=== PATIENT | female | born 1965 | race Caucasian/White ===

== ENCOUNTER 2020-06-14 09:22 | Outpatient (CLI) | payer BC, SELFPAY ==
--- NOTE | 2020-06-14 09:27 | MM_ITS ---
WS: [id number] BILATERAL DIGITAL SCREENING MAMMOGRAPHY WITH CAD CLINICAL INFORMATION: SCREENING HISTORY: Screening mammogram. No current complaints. COMPARISON: None. TECHNIQUE: Bilateral CC and MLO views. FINDINGS: Scattered fibroglandular densities bilaterally. No suspicious focal mass, asymmetry, calcifications, or architectural distortion. No evidence of malignancy. MM/[id number] IMPRESSION: BI-RADS: 1-Negative FOLLOW UP: 1 Year Follow-up Recommend return to annual screening mammography.
== END 2020-06-14 09:23 | disposition home or self-care (01) ==
PROVIDERS: PCP Nurse Practitioner Family; Visit Provider Nurse Practitioner Family
DX: Z12.31 Encounter for screening mammogram for malignant neoplasm of breast (principal)
CPT/HCPCS: 77067

== ENCOUNTER → 2020-07-25 08:32 | Outpatient (BNVA) | payer BC, SELFPAY | PROVIDERS: PCP Nurse Practitioner Family; Referring Provider Nurse Practitioner Family; Visit Provider Podiatrist Foot & Ankle Surgery | DX: M79.672 Pain in left foot (principal) | CPT/HCPCS: 73630 ==

== ENCOUNTER → 2022-04-08 10:14 | Outpatient (BNVA) | payer OTHER, SELFPAY | PROVIDERS: PCP Nurse Practitioner Family; Visit Provider Registered Nurse Neonatal Intensive Care | DX: N39.0 Urinary tract infection, site not specified (principal); N20.0 Calculus of kidney | CPT/HCPCS: 81000 ==

== ENCOUNTER 2023-03-15 15:09 | Emergency (ER) | payer OTHER, SELFPAY ==
[2023-03-15 15:18] VITALS: BP 138/80; PULSE 72; RESP 16; TEMP 36.6; O2SAT 95; BMI 27.4
[2023-03-15 15:46] VITALS: BP 130/79; PULSE 67; RESP 16; O2SAT 96
--- NOTE | 2023-03-15 15:56 | CTR_ITS ---
PROCEDURE INFORMATION: Exam: CT Abdomen And Pelvis Without Contrast Exam date and time: 03/15/2023 4:13 PM Age: 57 years old Clinical indication: Other: Hematuria; Abdominal pain; Flank; Other: Bilateral l>r; Patient HX: HX of renal calculus; Additional info: Bilateral l>r flank pain, hematuria TECHNIQUE: Imaging protocol: Computed tomography of the abdomen and pelvis without contrast. Radiation optimization: All CT scans at this facility use at least one of these dose optimization techniques: automated exposure control; mA and/or kV adjustment per patient size (includes targeted exams where dose is matched to clinical indication); or iterative reconstruction. REPORTING DATA: Count of CT and Cardiac NM exams in prior 12 months: This patient has received 0 known CTs and 0 known cardiac nuclear medicine studies in the 12 months prior to the current study. COMPARISON: CR XR [id number] 06/22/2022 4:09 PM RADIATION DOSE METRICS: Total DLP (mGy-cm): 504.04 FINDINGS: Liver: Normal. No mass. Gallbladder and bile ducts: Normal. No calcified stones. No ductal dilation. Pancreas: Normal. No ductal dilation. Spleen: Normal. No splenomegaly. Adrenal glands: Normal. No mass. Kidneys and ureters: Left renal pelvic 18.4 x 9.6 x 11.2 mm calculus, with mild left renal pelvic wall thickening and mild left intrarenal pelvicaliectasis. No ureteral calculi identified. Bilateral renal calyceal lithiasis. Bilateral renal benign cysts, largest on the right measuring 1.6 cm. Stomach and bowel: Unremarkable. No obstruction. No mucosal thickening. Appendix: The vermiform appendix is normal. Intraperitoneal space: No free air. No significant fluid collection. Vasculature: Moderate aortic atherosclerotic calcification without aneurysm. The iliac arteries show moderate bilateral atherosclerotic calcifications without evidence of aneurysm. Calcified phleboliths are present in the lower pelvis bilaterally. Lymph nodes: No enlarged lymph nodes. Urinary bladder: The urinary bladder is decompressed and difficult to assess. Reproductive: Unremarkable as visualized. Bones/joints: L5-S1 spondylosis with bilateral neural foraminal stenosis. Bilateral lower lumbar facet primary osteoarthritis. Soft tissues: Unremarkable. CT/CT kidney stone [id number] IMPRESSION: 1. Left renal pelvic calculus, with renal pelvic wall thickening and mild pelvicaliectasis. Obstructive uropathy likely. Clinical correlation is recommended. 2. Bilateral renal calyceal lithiasis. 3. Bilateral renal benign cysts. No follow-up imaging is recommended. COMMENTS: Consistent with the [employer]'s Incidental Findings Committee white paper (J Am Chris Radiol 2018): Any incidental renal lesion less than 1 cm or classified as too small to characterize, or any incidental cystic renal lesion characterized as simple-appearing, is likely benign. No follow-up imaging is recommended for these lesions per consensus recommendations based on imaging criteria.
--- NOTE | 2023-03-15 15:58 | ED_ITS ---
Documented by User: [email or web address] Cain 03/16/23 07:13 HPI - Back Pain/Injury General: Chief Complaint: Back Pain/Injury Stated Complaint: Abd pain Time Seen by Provider: 03/15/23 15:21 Source: patient Mode of arrival: ambulatory Limitations: no limitations History of Present Illness: Patient is a 57-year-old female here for complaint of bilateral left greater than right flank pain. Patient states she has a known history of bilateral kidney stones. She states in the past she has had multiple interventions including ureter stents, lithotripsy, basket retrieval, etc. She states over the past several months she has been having intermittent flank pains along with intermittent hematuria. She states while at work earlier today she began having fairly significant left flank pain prompting her ED evaluation. Upon arrival she states pain has improved and is minimal. She states she has been seen by her primary care provider and has been referred to a urologist in [place] as well as [place] but neither of which have called her for an appointment. Patient is not running fevers. She denies dysuria. She does intermittently have some urinary urgency. She has no abdominal pain. MD elicited complaint: back pain Pertinent past history: kidney stones Onset (ago): week(s) Timing: intermittent Severity: mild Quality: sharp Location: left flank and right flank Radiation: none Exacerbating factors: none Relieving factors: none Associated symptoms: Reports hematuria, nausea and urinary urgency; Deny abdominal pain, chills, change in bowel habits, dysuria, fatigue, fever(s) or vomiting Work related injury: No Review of Systems Const: Denies: fever(s), chills, body aches, fatigue or malaise Card: Denies: chest pain Resp: Denies: dyspnea GI: Reports: nausea; Denies: abdominal pain, vomiting, diarrhea or change in bowel habits : Reports: flank pain, urinary urgency and hematuria; Denies: difficulty voiding, dysuria, urinary frequency, urinary hesitancy, dribbling, vaginal bleeding or pelvic pain Musc: Reports: back pain (flank pain); Denies: neck pain, extremity pain or joint pain Skin/Breast: Denies: rash Neuro: Denies: headache(s) or dizziness PFS ED PFSH: Social History Smoking and tobacco status: current every day smoker Household members: spouse Marital status: Current occupational status: unemployed Physical Exam Const: COMMON NORMALS: no acute distress, average body habitus, patient oriented x3, no limitations, healthy appearing, alert and well nourished GENERAL APPEARANCE: cooperative ORIENTATION/CONSCIOUSNESS: Yes awake, Yes oriented to person, Yes oriented to place and Yes oriented to time Resp: COMMON NORMALS: normal respiratory effort and clear to auscultation bilaterally AUSCULTATION: clear to auscultation bilaterally Cardio: COMMON NORMALS: regular rate and regular rhythm RATE: regular rate RHYTHM: regular rhythm GI: COMMON NORMALS: Normal to inspection, nondistended, normoactive bowel sounds present, Soft to palpation, non-tender, No hepatosplenomegaly present and no masses PALPATION: Yes Soft to palpation and Yes No hepatosplenomegaly present : BLADDER/KIDNEY EXAM: Yes CVA tenderness on the left Back/Pelvis: COMMON NORMALS: thoracic and lumbar spine normal to inspection, no thoracic nor lumbar tenderness and thoraco-lumbar ROM normal GENERAL BACK: Yes CVA tenderness Extremity: COMMON NORMALS: normal to inspection GENERAL: Yes normal exam except as noted Neuro: DELMAR COMA SCALE: document GCS findings Delmar coma scale eye opening: Spontaneous [place]mar coma scale verbal response: Orientated [facility] coma scale motor response: Obey commands [facility] coma scale total score: 15 COMMON NORMALS: patient oriented x3, moves all extremities, no focal motor deficits and no sensory deficits noted SENSORIUM/ORIENTATION: Yes alert, Yes oriented to person, Yes oriented to place and Yes oriented to time Skin: COMMON NORMALS: no rashes or lesions noted GENERAL SKIN EXAM: no rashes or lesions noted Course Vital Signs: Vital signs: Vital Signs Temperature 97.9 F 03/15/23 15:18 Pulse Rate 67 03/15/23 15:46 Respiratory Rate 16 03/15/23 15:46 Blood Pressure 112/63 03/15/23 17:25 Pulse Oximetry 96 03/15/23 15:46 Oxygen Delivery Me thod Room Air 03/15/23 15:18 MDM - Back Pain/Injury Medical Decision Making Was discussed in detail with nurse practitioner. Patient appears to have la teral kidney stones and possible obstructive uropathy. She already has an appointment for 2 different urologist. Patient be placed on antibiotics and pain medicine to get her through the weekend until she can call the urologist office to try to get their appointment made even quicker. Patient is a 57-year-old female with known bilateral kidney stones here for complaints of some intermittent flank pains. She had an episode at work today with worse in severity left flank pain and thus prompting her ED visit. Upon arrival to the ED she states pain has subsided and is minimal. Her vital signs are stable. Blood work overall is unremarkable. Her BUN/Cr is normal. UA showing 3+ blood. She does have 10-15 WBCs but leuks and nitrite are negative. She does not have any signs or symptoms to suggest UTI or pyelonephritis. CT scan showing a very large left renal pelvic calculus measuring over 18 mm longitudinally. Obstructive uropathy likely. This time patient's labs are reassuring. She is not having much discomfort. She has already been referred to urologist. I will place referral with case management to try to expedite an appointment. She will be placed on prophylactic antibiotics given the fact that we have not secured urology follow-up and we are going into the weekend. She will also be given pain/nausea medications to use as needed. Very strict return to ED precautions were discussed with patient. Discussed case with Dr. Faria who agrees with evaluation and care plan. ES Labs 03/15/23 15:52 03/15/23 15:52 Radiology Impressions Abdomen/Pelvis CT 03/15/23 15:56 IMPRESSION: 1. Left renal pelvic calculus, with renal pelvic wall thickening and mild pelvicaliectasis. Obstructive uropathy likely. Clinical correlation is recommended. 2. Bilateral renal calyceal lithiasis. 3. Bilateral renal benign cysts. No follow-up imaging is recommended. COMMENTS: Consistent with the [employer]'s Incidental Findings Committee white paper (J Am Chris Radiol 2018): Any incidental renal lesion less than 1 cm or classified as too small to characterize, or any incidental cystic renal lesion characterized as simple-appearing, is likely benign. No follow-up imaging is recommended for these lesions per consensus recommendations based on imaging criteria. Laboratory Results WBC 7.0 10^3/uL (4.0-10.0) 03/15/23 15:52 RBC 4.48 10^6/uL (4.1-5.3) 03/15/23 15:52 Hgb 14.6 g/dL (11.5-15.3) 03/15/23 15:52 Hct 43.3 % (37.0-47.0) 03/15/23 15:52 MCV 96.7 fl (81-99) 03/15/23 15:52 MCH 32.6 pg (28.0-34.0) 03/15/23 15:52 MCHC 33.7 g/dL (30.0-36.0) 03/15/23 15:52 RDW 13.8 % (12.1-15.1) 03/15/23 15:52 Plt Count 293 10^3/cmm (130-400) 03/15/23 15:52 MPV 10.4 fL (7.4-10.4) 03/15/23 15:52 Neut % (Auto) 67.1 % 03/15/23 15:52 Lymph % (Auto) 22.3 % 03/15/23 15:52 [place] % (Auto) 6.9 % 03/15/23 15:52 Eos % (Auto) 3.0 % 03/15/23 15:52 Baso % (Auto) 0.4 % 03/15/23 15:52 Neut # (Auto) 4.70 10^3/uL (1.8-7.7) 03/15/23 15:52 Lymph # (Auto) 1.6 10^3/uL (0.8-4.8) 03/15/23 15:52 [place] # (Auto) 0.5 10^3/uL (0.2-0.9) 03/15/23 15:52 Eos # (Auto) 0.2 10^3/uL (0.0-0.8) 03/15/23 15:52 Baso # (Auto) 0.0 10^3/uL (0.0-0.1) 03/15/23 15:52 Nucleated RBC % (auto) 0 % 03/15/23 15:52 Nucleated RBCs # 0.0 /100WBC 03/15/23 15:52 Sodium 139 mmol/L (136-145) 03/15/23 15:52 Potassium 4.2 mmol/L (3.5-5.1) 03/15/23 15:52 Chloride 101 mmol/L (98-107) 03/15/23 15:52 Carbon Dioxide 25 mmol/L (22-29) 03/15/23 15:52 Anion Gap 17.2 (5-19) 03/15/23 15:52 BUN 12 mg/dL (6-20) 03/15/23 15:52 Creatinine 0.7 mg/dL (0.5-0.9) 03/15/23 15:52 GFR Calculation 85.6 mL/min (90-130) L 03/15/23 15:52 Glucose 90 mg/dL (65-115) 03/15/23 15:52 Calculated Osmolality 287 mOsm/kg (285-295) 03/15/23 15:52 Calcium 9.1 mg/dL (8.5-10.5) 03/15/23 15:52 Total Bilirubin 0.8 mg/dL (0.15-1.2) 03/15/23 15:52 AST 15 U/L (0-32) 03/15/23 15:52 ALT 13 U/L (0-33) 03/15/23 15:52 Alkaline Phosphatase 66 U/L (35-105) 03/15/23 15:52 Total Protein 7.1 g/dL (6.6-8.7) 03/15/23 15:52 Albumin 4.5 g/dL (3.5-5.2) 03/15/23 15:52 Globulin 2.6 g/dL (1.3-4.6) 03/15/23 15:52 Lipase 18 U/L (13-60) 03/15/23 15:52 Urine Color Yellow (Yellow) 03/15/23 16:08 Urine Appearance Hazy (CLEAR) A 03/15/23 16:08 Urine pH 5 (5-7) 03/15/23 16:08 Ur Specific Lyle 1.020 (1.005-1.030) 03/15/23 16:08 Urine Protein Trace (Negative) 03/15/23 16:08 Urine Glucose (UA) Norm (Normal) 03/15/23 16:08 Urine Ketones 1+ (Negative) H 03/15/23 16:08 Urine Blood 3+ (Negative) H 03/15/23 16:08 Urine Nitrate Negative (Negative) 03/15/23 16:08 Urine Bilirubin Neg (Negative) 03/15/23 16:08 Urine Urobilinogen Norm mg/dL (Negative) 03/15/23 16:08 Ur Leukocyte Esterase Negative (Negative) 03/15/23 16:08 Urine RBC 25-40 /hpf (0-2) H 03/15/23 16:08 Urine WBC 10-15 /hpf (0-5) H 03/15/23 16:08 Ur Squamous Epith Cells 0-4 /hpf (0-5) H 03/15/23 16:08 Amorphous Sediment Not Reportable 03/15/23 16:08 Urine Bacteria 1+ /hpf (NONE) H 03/15/23 16:08 Discharge Plan Discharge Patient Disposition: Home Clinical Impression: Multiple kidney stones, Acute unilateral obstructive uropathy Condition: Stable Prescriptions: New hydrocodone-acetaminophen 5-325 mg tablet 1 tab PO Q6H PRN (Reason: pain) Qty: 14 0RF Cipro 500 mg tablet 500 mg PO Q12H Qty: 14 0RF ondansetron 4 mg tablet,disintegrating 4 mg PO Q8H PRN (Reason: nausea and vomiting) Qty: 14 0RF No Action levothyroxine 125 mcg tablet PO fluoxetine 40 mg capsule PO ondansetron 4 mg tablet,disintegrating 4 mg PO Q6H PRN (Reason: nausea and vomiting) Qty: 20 0RF Discharge Orders: Discharge ED (Routine); Ordered 03/15/23 Ordered By: Amber Dawson Referrals: Beckie Kerr FNP [Primary Care Provider] - Patient Instructions: Kidney Stones, Flank Pain (ED), Opioid Safety, Pain Management Activity Restrictions/Additional Instructions: As we discussed I will place another referral to urology through case management. You also need to contact the urologist that you have been referred to on Saturday to help expedite an urgent appointment. As we discussed you need to return to the emergency department for the onset of severe and constant flank pain, nausea, vomiting, fevers, decreased urine output, generally feeling unwell, or any other concerns you may have. I hope you begin to feel better soon. Coding Level of Care Code ED Boring Machine Set Up Operator Jig for Alie Linder Documented by User: [email or web address] 03/15/23 20:09 HPI - Back Pain/Injury General: Chief Complaint: Back Pain/Injury Stated Complaint: Abd pain Time Seen by Provider: 03/15/23 15:21 PFSH ED PFSH: Social History Smoking and tobacco status: current every day smoker Household members: spouse Marital status: Current occupational status: unemployed Physical Exam Neuro: DELMAR COMA SCALE: document GCS findings [place]mar coma scale total score: 15 Course Vital Signs: Vital signs: Vital Signs Temperature 97.9 F 03/15/23 15:18 Pulse Rate 67 03/15/23 15:46 Respiratory Rate 16 03/15/23 15:46 Blood Pressure 112/63 03/15/23 17:25 Pulse Oximetry 96 03/15/23 15:46 Oxygen Delivery Me thod Room Air 03/15/23 15:18 MDM - Back Pain/Injury Medical Decision Making Was discussed in detail with nurse practitioner. Patient appears to have lateral kidney stones and possible obstructive uropathy. She already has an appointment for 2 different urologist. Patient be placed on antibiotics and pain medicine to get her through the weekend until she can call the urologist office to try to get their appointment made even quicker. Labs 03/15/23 15:52 03/15/23 15:52 Radiology Impressions Abdomen/Pelvis CT 03/15/23 15:56 IMPRESSION: 1. Left renal pelvic calculus, with renal pelvic wall thickening and mild pelvicaliectasis. Obstructive uropathy likely. Clinical correlation is recommended. 2. Bilateral renal calyceal lithiasis. 3. Bilateral renal benign cysts. No follow-up imaging is recommended. COMMENTS: Consistent with the [employer]'s Incidental Findings Committee white paper (J Am Chris Radiol 2018): Any incidental renal lesion less than 1 cm or classified as too small to characterize, or any incidental cystic renal lesion characterized as simple-appearing, is likely benign. No follow-up imaging is recommended for these lesions per consensus recommendations based on imaging criteria. Laboratory Results WBC 7.0 10^3/uL (4.0-10.0) 03/15/23 15:52 RBC 4.48 10^6/uL (4.1-5.3) 03/15/23 15:52 Hgb 14.6 g/dL (11.5-15.3) 03/15/23 15:52 Hct 43.3 % (37.0-47.0) 03/15/23 15:52 MCV 96.7 fl (81-99) 03/15/23 15:52 MCH 32.6 pg (28.0-34.0) 03/15/23 15:52 MCHC 33.7 g/dL (30.0-36.0) 03/15/23 15:52 RDW 13.8 % (12.1-15.1) 03/15/23 15:52 Plt Count 293 10^3/cmm (130-400) 03/15/23 15:52 MPV 10.4 fL (7.4-10.4) 03/15/23 15:52 Neut % (Auto) 67.1 % 03/15/23 15:52 Lymph % (Auto) 22.3 % 03/15/23 15:52 [place] % (Auto) 6.9 % 03/15/23 15:52 Eos % (Auto) 3.0 % 03/15/23 15:52 Baso % (Auto) 0.4 % 03/15/23 15:52 Neut # (Auto) 4.70 10^3/uL (1.8-7.7) 03/15/23 15:52 Lymph # (Auto) 1.6 10^3/uL (0.8-4.8) 03/15/23 15:52 [place] # (Auto) 0.5 10^3/uL (0.2-0.9) 03/15/23 15:52 Eos # (Auto) 0.2 10^3/uL (0.0-0.8) 03/15/23 15:52 Baso # (Auto) 0.0 10^3/uL (0.0-0.1) 03/15/23 15:52 Nucleated RBC % (auto) 0 % 03/15/23 15:52 Nucleated RBCs # 0.0 /100WBC 03/15/23 15:52 Sodium 139 mmol/L (136-145) 03/15/23 15:52 Potassium 4.2 mmol/L (3.5-5.1) 03/15/23 15:52 Chloride 101 mmol/L (98-107) 03/15/23 15:52 Carbon Dioxide 25 mmol/L (22-29) 03/15/23 15:52 Anion Gap 17.2 (5-19) 03/15/23 15:52 BUN 12 mg/dL (6-20) 03/15/23 15:52 Creatinine 0.7 mg/dL (0.5-0.9) 03/15/23 15:52 GFR Calculation 85.6 mL/min (90-130) L 03/15/23 15:52 Glucose 90 mg/dL (65-115) 03/15/23 15:52 Calculated Osmolality 287 mOsm/kg (285-295) 03/15/23 15:52 Calcium 9.1 mg/dL (8.5-10.5) 03/15/23 15:52 Total Bilirubin 0.8 mg/dL (0.15-1.2) 03/15/23 15:52 AST 15 U/L (0-32) 03/15/23 15:52 ALT 13 U/L (0-33) 03/15/23 15:52 Alkaline Phosphatase 66 U/L (35-105) 03/15/23 15:52 Total Protein 7.1 g/dL (6.6-8.7) 03/15/23 15:52 Albumin 4.5 g/dL (3.5-5.2) 03/15/23 15:52 Globulin 2.6 g/dL (1.3-4.6) 03/15/23 15:52 Lipase 18 U/L (13-60) 03/15/23 15:52 Urine Color Yellow (Yellow) 03/15/23 16:08 Urine Appearance Hazy (CLEAR) A 03/15/23 16:08 Urine pH 5 (5-7) 03/15/23 16:08 Ur Specific [place]yle 1.020 (1.005-1.030) 03/15/23 16:08 Urine Protein Trace (Negative) 03/15/23 16:08 Urine Glucose (UA) Norm (Normal) 03/15/23 16:08 Urine Ketones 1+ (Negative) H 03/15/23 16:08 Urine Blood 3+ (Negative) H 03/15/23 16:08 Urine Nitrate Negative (Negative) 03/15/23 16:08 Urine Bilirubin Neg (Negative) 03/15/23 16:08 Urine Urobilinogen Norm mg/dL (Negative) 03/15/23 16:08 Ur Leukocyte Esterase Negative (Negative) 03/15/23 16:08 Urine RBC 25-40 /hpf (0-2) H 03/15/23 16:08 Urine WBC 10-15 /hpf (0-5) H 03/15/23 16:08 Ur Squamous Epith Cells 0-4 /hpf (0-5) H 03/15/23 16:08 Amorphous Sediment Not Reportable 03/15/23 16:08 Urine Bacteria 1+ /hpf (NONE) H 03/15/23 16:08 Discharge Plan Discharge Patient Disposition: Home Clinical Impression: Multiple kidney stones, Acute unilateral obstructive uropathy Condition: Stable Prescriptions: New hydrocodone-acetaminophen 5-325 mg tablet 1 tab PO Q6H PRN (Reason: pain) Qty: 14 0RF Cipro 500 mg tablet 500 mg PO Q12H Qty: 14 0RF ondansetron 4 mg tablet,disintegrating 4 mg PO Q8H PRN (Reason: nausea and vomiting) Qty: 14 0RF No Action levothyroxine 125 mcg tablet PO fluoxetine 40 mg capsule PO ondansetron 4 mg tablet,disintegrating 4 mg PO Q6H PRN (Reason: nausea and vomiting) Qty: 20 0RF Discharge Orders: Discharge ED (Routine); Ordered 03/15/23 Ordered By: Amber Dawson Referrals: Beckie Kerr FNP [Primary Care Provider] - Patient Instructions: Kidney Stones, Flank Pain (ED), Opioid Safety, Pain Management Activity Restrictions/Additional Instructions: As we discussed I will place another referral to urology through case management. You also need to contact the urologist that you have been referred to on Saturday morning to help expedite an urgent appointment. As we discussed you need to return to the emergency department for the onset of severe and constant flank pain, nausea, vomiting, fevers, decreased urine output, generally feeling unwell, or any other concerns you may have. I hope you begin to feel better soon. Coding Level of Care Code ED Boring Machine Set Up Operator Jig for Alie Linder
[2023-03-15] MEDS: ketorolac 60 mg/2 mL INJ 30 MG IVP (16:05)
[2023-03-15] MEDS: ondansetron 2 mg/ML SDV 2 mL 4 MG IVP (16:05)
[2023-03-15 16:08] LABS: Basophils % 0.4 %; Eosinophils # 0.2 10^3/uL (0.0-0.8); Hematocrit 43.3 % (37.0-47.0); Hemoglobin 14.6 g/dL (11.5-15.3); Lymphocytes # 1.6 10^3/uL (0.8-4.8); Lymphocytes % 22.3 %; Mean Corpuscular HGB Conc 33.7 g/dL (30.0-36.0); Mean Corpuscular Hemoglobin 32.6 pg (28.0-34.0); Mean Corpuscular Volume 96.7 fl (81-99); Mean Platelet Volume 10.4 fL (7.4-10.4); Monocytes # 0.5 10^3/uL (0.2-0.9); Monocytes % 6.9 %; Neutrophils % 67.1 %; Nucleated Red Blood Cells % 0 %; Platelet Count 293 10^3/cmm (130-400); Red Blood Count 4.48 10^6/uL (4.1-5.3); Red Cell Distribution Width 13.8 % (12.1-15.1)
[2023-03-15 16:28] LABS: Alanine Aminotransferase 13 U/L (0-33); Albumin Level 4.5 g/dL (3.5-5.2); Alkaline Phosphatase 66 U/L (35-105); Anion Gap 17.2 (5-19); Aspartate Amino Transferase 15 U/L (0-32); Blood Urea Nitrogen 12 mg/dL (6-20); Calcium 9.1 mg/dL (8.5-10.5); Carbon Dioxide 25 mmol/L (22-29); Chloride 101 mmol/L (98-107); Globulin 2.6 g/dL (1.3-4.6); Glomerular Filtration Rate 85.6 mL/min (90-130); Glucose 90 mg/dL (65-115); Lipase 18 U/L (13-60); Osmolality Calculated 287 mOsm/kg (285-295); Potassium 4.2 mmol/L (3.5-5.1); Sodium 139 mmol/L (136-145); Total Bilirubin 0.8 mg/dL (0.15-1.2); Total Protein 7.1 g/dL (6.6-8.7)
[2023-03-15 16:44] LABS: Add Urine Microscopic? YES; Bilirubin Urine Neg (Negative); Blood Urine 3+ (Negative); Glucose Urine UA Norm (Normal); Ketones Urine 1+ (Negative); Leukocyte Esterase Urine Negative (Negative); Nitrate Urine Negative (Negative); Protein Urine Trace (Negative); Urine Appearance Hazy (CLEAR); Urine Color Yellow (Yellow); Urobilinogen Urine Norm (Negative); pH Urine 5 (5-7)
[2023-03-15 16:49] LABS: Add Urine Culture? Yes; Bacteria Urine 1+ /hpf; RBC Urine 25-40 /hpf (0-2); Squamous Epithelial Cell Urine 0-4 /hpf (0-5)
[2023-03-15 17:25] VITALS: BP 112/63
--- NOTE | 2023-03-18 14:18 | DCPLANNER ---
clerk manager had message to schedule a follow up appointment for patient with urology. clerk manager spoke with patient to confirm where patient would like referral sent to. Patient stated that she would like referral sent to [facility]. clerk manager faxed patients information to [facility], patients information will be reviewed, clinic will call patient with appointment information.
== END 2023-03-15 17:26 | disposition home or self-care (01) ==
PROVIDERS: Emergency Provider Physician Assistant; PCP Nurse Practitioner Family
DX: N20.2 Calculus of kidney with calculus of ureter (principal); F17.200 Nicotine dependence, unspecified, uncomplicated
CPT/HCPCS: 74176; 80053; 81001; 83690; 85025; 87086; 96374; 96375; 99284; J1885; J2405

== ENCOUNTER 2023-05-27 13:44 | Emergency (ER) | payer OTHER, SELFPAY ==
[2023-05-27 13:47] VITALS: BP 167/95; PULSE 74; RESP 17; O2SAT 97; BMI 26.6
--- NOTE | 2023-05-27 13:56 | CT_ITS ---
WS: [id number] CT HEAD NONCONTRAST HISTORY: dizziness, HOLDEN TECHNIQUE: Contiguous axial imaging performed through the brain in 2.5 mm imaging. Bone and soft tiss ue windows. Sagittal and coronal reformats reviewed. All CT scans at [facility] use at least one of these dose optimization techniques: automated exposure control; mA and/or kV adjustment per pa tient size (includes targeted exams where dose is matched to clinical indication); or iterative recon struction. DLP: 1086.33 mGy.cm COMPARISON: None available. No acute intracranial hemorrhage, midline shift or mass effect. Mild atrophy and small vessel ischemic disease. Small lacunar infarct in the external capsule on the RIGHT. Ventricles: Normal size with no hydrocephalus. No inferior displacement of the cerebellar tonsils. Paranasal sinuses: As visualized are clear. Mastoid air cells: Well pneumatized. Calvarium and scalp: Skull is intact with no soft tissue edema or swelling. IMPRESSION: 1. No acute intracranial hemorrhage or edema. 2. Mild small vessel ischemic disease. Remote lacunar infarct RIGHT external capsule.
--- NOTE | 2023-05-27 13:56 | ECG_ITS ---
[facility] Test Date: 2023-05-27 Pat Name: Rosamaria Vincent Department: Room: Gender: Female Nuclear Medical Technologist: : 1965 Requested By: Amber Dawson Order Number: [id number] Loy MD: Shai Garcia M.D. Measurements Intervals [employer] Rate: 65 P: 66 MN: 157 QRS: 65 QRSD: 90 T: 51 QT: 414 QTc: 431 Interpretive Statements SINUS RHYTHM POSSIBLE LEFT ATRIAL ENLARGEMENT [-0.1mV P-WAVE IN V1/V2] LOW QRS VOLTAGE IN PRECORDIAL LEADS [QRS DEFLECTION < 1.0 mV IN CHEST LEADS] No previous ECG available for comparison Electronically Signed On 05-27-2023 14:27:48 CDT by Shai Garcia M.D. [id number]
--- NOTE | 2023-05-27 13:57 | ED_ITS ---
HPI - Dizziness General: Chief Complaint: Dizziness Stated Complaint: dizziness/high bp Time Seen by Provider: 05/27/23 13:47 Source: patient Mode of arrival: ambulatory Limitations: no limitations History of Present Illness: HPI Narrative: Patient is a nice 57-year-old female who presents to ED today with complaint of dizziness. Patient states she was at work when she began feeling dizzy. She states she was able to walk to the nurses station where she had her vitals take n. She was told that her blood pressure was elevated with a BP of 160s/100s. States her blood pressure is normally controlled at home. She states she did not notice any visual changes. She did not notice any numbness or tingling or weakness to her face or limbs. She denied slurred speech or trouble speaking. During my initial examination she tells me that she was starting to develop a headache. Shortly after during re-assessment she states her headache is gone. MD elicited complaint: dizziness Onset (ago): hour(s) Severity: moderate Description: room spinning History of similar symptoms: No Exacerbating factors: movement/ambulation and change in body position Relieving factors: remaining still Associated symptoms: Reports no associated symptoms and headache(s); Denies chest pain, chills, malaise, nausea, palpitations, syncope or vomiting Associated neuro symptoms: Reports no associated symptoms; Deny confusion or numbness in extremities Stroke scale total: 0 Review of Systems Const: Denies: fever(s), chills, body aches, fatigue or malaise Eyes: Denies: change in vision, blurry vision, photophobia, floaters or seeing flashes Card: Denies: chest pain, palpitations, irregular heart rhythm, lightheadedness, syncope or dyspnea on exertion Resp: Denies: dyspnea, productive cough or pain on inspiration GI: Denies: abdominal pain, nausea, vomiting, heartburn or diarrhea : Denies: flank pain, difficulty voiding, dysuria, urinary frequency, urinary urgency or urinary hesitancy Musc: Denies: neck pain, back pain or joint pain Skin/Breast: Denies: rash Neuro: Reports: headache(s) and dizziness; Denies: numbness in extremities, weakness in extremities, sensory changes, lack of coordination, difficulty walking, frequent falls, confusion, behavioral changes, Slurred speech present, difficulty communicating thoughts, seizure-like activity or involuntary movements Psych: Denies: anxiety PFSH ED PFSH: Social History Smoking and tobacco status: current every day smoker Household members: spouse Marital status: Current occupational status: unemployed Physical Exam Const: COMMON NORMALS: no acute distress, average body habitus, patient oriented x3, no limitations, healthy appearing, alert and well nourished ORIENTATION/CONSCIOUSNESS: Yes oriented to person, Yes oriented to place and Yes oriented to time HENMT: COMMON NORMALS: normocephalic, atraumatic, hearing grossly normal bilaterally, external ears normal, EAC's normal and TM's normal bilaterally HEAD & SCALP: normal to inspection, normocephalic and atraumatic FACE & SINUS: normal facial exam EXTERNAL EAR: Yes external ears normal EXTERNAL AUDITORY CANAL: EAC's normal TYMPANIC MEMBRANE: TM's normal bilaterally MOUTH: tongue normal; no audible dysphonia THROAT: posterior oropharynx normal, tonsils normal and uvula midline Eye: COMMON NORMALS: Equal, round and reactive pupils present, EOMs intact bilaterally and no scleral icterus GENERAL EYE: appearance normal, both eyes and all related structures and normal light reflex VISUAL ACUITY: Yes acuity normal ALIGNMENT: Yes alignment normal PUPIL: Yes Equal, round and reactive pupils present DIRECT OPHTHALMOSCOPY: Yes normal light reflex OTHER: no nystagmus Neck/C-Spine: COMMON NORMALS: full ROM, no lymphadenopathy, supple and no meningeal signs GENERAL: Yes normal visual inspection Chest: COMMONS NORMALS: normal inspection of the chest Resp: COMMON NORMALS: normal respiratory effort and clear to auscultation bila terally AUSCULTATION: clear to auscultation bilaterally Cardio: COMMON NORMALS: regular rate and regular rhythm RATE: regular rate RHYTHM: regular rhythm GI: COMMON NORMALS: Normal to inspection, nondistended, normoactive bowel sounds present, Soft to palpation, non-tender, No hepatosplenomegaly present and no masses PALPATION: Yes Soft to palpation and Yes No hepatosplenomegaly pr esent : COMMON NORMALS: Yes no CVA tenderness BLADDER/KIDNEY EXAM: Yes no CVA tenderness Back/Pelvis: COMMON NORMALS: no CVA tenderness and thoracic and lumbar spine normal to inspection Extremity: COMMON NORMALS: normal to inspection GENERAL: Yes normal exam except as noted Neuro: SANTO COMA SCALE: document GCS findings [place] coma scale eye opening: Spontaneous [place] coma scale verbal response: Orientated [place] coma scale motor response: Obey commands [place] coma scale total score: 15 COMMON NORMALS: patient oriented x3, CN's II-XII intact bilaterally, moves all extremities, no focal motor deficits and no sensory deficits noted SENSORIUM/ORIENTATION: Yes alert, Yes oriented to person, Yes oriented to place and Yes oriented to time MENINGEAL SIGNS: Yes no meningeal signs COORDINATION/BALANCE: [id number] test normal SPEECH: speech normal MOTOR EXAM: 5/5 motor strength present throughout COORDINATION: [id number] e test normal Skin: COMMON NORMALS: no rashes or lesions noted GENERAL SKIN EXAM: no rashes or lesions noted Course Vital Signs: Vital signs: Vital Signs Pulse Rate 66 05/27/23 16:25 Respiratory Rate 16 05/27/23 16:25 Blood Pressure 135/88 05/27/23 16:25 Pulse Oximetry 95 05/27/23 16:25 Oxygen Delivery Me thod Room Air 05/27/23 13:47 MDM - Dizziness Medical Decision Making Patient here for complaints of isolated dizziness while at work earlier today. Blood pressure was taken at that time and was reportedly high at 160s/100s. She had no complaints of visual change, trouble ambulating, slurred speech or aphasia, or weakness. Had a slight headache here briefly but this resolved. BP here improved without intervention. Blood work unremarkable. UA contaminated. Patient has no urinary complaints. Head CT showing no acute findings. She did have a remote lacunar infarct. This was discussed with her and she will follow- up with primary care in regards to this. Patient states her dizziness while here in the emergency department improved and she was able to ambulate here. Stanton molina will be allowed discharge at this time. Strict return ED precautions given. Lab Data 05/27/23 14:03 05/27/23 14:03 Laboratory Results WBC 7.23 10^3/uL (3.29-11.43) 05/27/23 14:03 RBC 4.55 10^6/uL (3.85-5.65) 05/27/23 14:03 Hgb 15.20 g/dL (11.27-16.99) 05/27/23 14:03 Hct 44.9 % (36-47) 05/27/23 14:03 MCV 98.7 fl (85-98) H 05/27/23 14:03 MCH 33.4 pg (27-33) H 05/27/23 14:03 MCHC 33.9 g/dL (30-55) 05/27/23 14:03 RDW 14.0 % (12.1-15.1) 05/27/23 14:03 Plt Count 291 10^3/cmm (157-399) 05/27/23 14:03 MPV 10.1 fL (7.4-10.4) 05/27/23 14:03 Neut % (Auto) 67.5 % 05/27/23 14:03 Lymph % (Auto) 19.9 % 05/27/23 14:03 [place] % (Auto) 9.1 % 05/27/23 14:03 Eos % (Auto) 2.9 % 05/27/23 14:03 Baso % (Auto) 0.3 % 05/27/23 14:03 Neut # (Auto) 4.88 10^3/uL (1.8-7.7) 05/27/23 14:03 Lymph # (Auto) 1.4 10^3/uL (0.8-4.8) 05/27/23 14:03 [place] # (Auto) 0.7 10^3/uL (0.2-0.9) 05/27/23 14:03 Eos # (Auto) 0.2 10^3/uL (0.0-0.8) 05/27/23 14:03 Baso # (Auto) 0.0 10^3/uL (0.0-0.1) 05/27/23 14:03 Nucleated RBC % (auto) 0 % 05/27/23 14:03 Nucleated RBCs # 0.0 /100WBC 05/27/23 14:03 Sodium 139 mmol/L (136-145) 05/27/23 14:03 Potassium 4.2 mmol/L (3.5-5.1) 05/27/23 14:03 Chloride 103 mmol/L (98-107) 05/27/23 14:03 Carbon Dioxide 24 mmol/L (22-29) 05/27/23 14:03 Anion Gap 16.2 (5-19) 05/27/23 14:03 BUN 17 mg/dL (6-20) 05/27/23 14:03 Creatinine 0.7 mg/dL (0.5-0.9) 05/27/23 14:03 GFR Calculation 85.6 mL/min (90-130) L 05/27/23 14:03 Glucose 100 mg/dL (65-115) 05/27/23 14:03 Calculated Osmolality 290 mOsm/kg (285-295) 05/27/23 14:03 Calcium 9.1 mg/dL (8.5-10.5) 05/27/23 14:03 Total Bilirubin 0.9 mg/dL (0.15-1.2) 05/27/23 14:03 AST 14 U/L (0-32) 05/27/23 14:03 ALT 14 U/L (0-33) 05/27/23 14:03 Alkaline Phosphatase 77 U/L (35-105) 05/27/23 14:03 Total Protein 6.9 g/dL (6.6-8.7) 05/27/23 14:03 Albumin 4.8 g/dL (3.5-5.2) 05/27/23 14:03 Globulin 2.1 g/dL (1.3-4.6) 05/27/23 14:03 TSH 3.85 uIU/mL (0.27-4.20) 05/27/23 14:03 Urine Color Yellow (Yellow) 05/27/23 14:05 Urine Appearance Sl hazy (CLEAR) A 05/27/23 14:05 Urine pH 6 (5-7) 05/27/23 14:05 Ur Specific [place] 1.020 (1.005-1.030) 05/27/23 14:05 Urine Protein Neg (Negative) 05/27/23 14:05 Urine Glucose (UA) Norm (Normal) 05/27/23 14:05 Urine Ketones 1+ (Negative) H 05/27/23 14:05 Urine Blood 2+ (Negative) H 05/27/23 14:05 Urine Nitrate Negative (Negative) 05/27/23 14:05 Urine Bilirubin Neg (Negative) 05/27/23 14:05 Urine Urobilinogen Norm mg/dL (Negative) 05/27/23 14:05 Ur Leukocyte Esterase Trace (Negative) H 05/27/23 14:05 Urine RBC 0-4 /hpf (0-2) H 05/27/23 14:05 Urine WBC 5-10 /hpf (0-5) H 05/27/23 14:05 Ur Squamous Epith Cells 5-10 /hpf (0-5) H 05/27/23 14:05 Amorphous Sediment Not Reportable 05/27/23 14:05 Urine Bacteria 1+ /hpf (NONE) H 05/27/23 14:05 All radiology interpretation(s) finalized by discharge Discharge Plan Discharge Patient Disposition: Home Clinical Impression: Dizziness Condition: Stable Prescriptions: New meclizine 50 mg tablet 50 mg PO TID PRN (Reason: dizziness) Qty: 14 0RF No Action levothyroxine 125 mcg tablet 125 mcg PO QAM fluoxetine 40 mg capsule 40 mg PO QAM Discharge Orders: Discharge ED (Routine); Ordered 05/27/23 Ordered By: Amber Dawson Referrals: Beckie Kerr FNP [Primary Care Provider] - Patient Instructions: Dizziness Activity Restrictions/Additional Instructions: As we discussed I would like you to follow-up with primary care in 48 to 72 hours if dizziness persists. You need to return to the emergency department immediately for severe dizziness, trouble ambulating or frequent falls secondary to the dizziness, visual changes/double vision, weakness to your arms/legs, f acial drooping, trouble swallowing, trouble finding words or slurred speech, or any other concerns you may have. Coding Level of Care Code ED Supervisor Maintenance for Alie Linder NIH stroke score NIHSS Level Of Consciousness - 1a: 0 Level Of Consciousness Questions - 1b: Both Correct Level Of Consciousness Commands - 1c: Both Correct Best Gaze - 2: Normal Visual Garner - 3: No Visual Loss Facial Palsy - 4: Normal Motor Arm Right - 5: No Drift Motor Arm Left - 5: No Drift Motor Leg Right - 6: No Drift Motor Leg Left - 6: No Drift Limb Ataxia - 7: Absent Sensory - 8: Normal Best Language - 9: No Aphasia Dysarthia - 10: Normal Extinction And Inattention - 11: 0 Score Total Score: 0
[2023-05-27 14:08] LABS: Basophils % 0.3 %; Eosinophils # 0.2 10^3/uL (0.0-0.8); Eosinophils % 2.9 %; Hematocrit 44.9 % (36-47); Lymphocytes # 1.4 10^3/uL (0.8-4.8); Lymphocytes % 19.9 %; Mean Corpuscular HGB Conc 33.9 g/dL (30-55); Mean Corpuscular Hemoglobin 33.4 pg (27-33); Mean Corpuscular Volume 98.7 fl (85-98); Mean Platelet Volume 10.1 fL (7.4-10.4); Monocytes # 0.7 10^3/uL (0.2-0.9); Monocytes % 9.1 %; Neutrophils # 4.88 10^3/uL (1.8-7.7); Neutrophils % 67.5 %; Nucleated Red Blood Cells % 0 %; Platelet Count 291 10^3/cmm (157-399); Red Blood Count 4.55 10^6/uL (3.85-5.65); White Blood Count 7.23 10^3/uL (3.29-11.43)
[2023-05-27] MEDS: sodium chloride 0.9% 1,000 ML 999 ML IV (14:18)
[2023-05-27 14:22] VITALS: BP 109/65; PULSE 60; O2SAT 94
[2023-05-27 14:27] LABS: Add Urine Microscopic? YES; Bilirubin Urine Neg (Negative); Blood Urine 2+ (Negative); Glucose Urine UA Norm (Normal); Ketones Urine 1+ (Negative); Leukocyte Esterase Urine Trace (Negative); Nitrate Urine Negative (Negative); Protein Urine Neg (Negative); Urine Appearance SL Hazy (CLEAR); Urine Color Yellow (Yellow); Urobilinogen Urine Norm (Negative); pH Urine 6 (5-7)
[2023-05-27 14:28] LABS: Bacteria Urine 1+ /hpf; RBC Urine 0-4 /hpf (0-2)
[2023-05-27 14:29] LABS: Add Urine Culture? No
[2023-05-27 14:38] LABS: Alanine Aminotransferase 14 U/L (0-33); Albumin Level 4.8 g/dL (3.5-5.2); Alkaline Phosphatase 77 U/L (35-105); Blood Urea Nitrogen 17 mg/dL (6-20); Calcium 9.1 mg/dL (8.5-10.5); Carbon Dioxide 24 mmol/L (22-29); Chloride 103 mmol/L (98-107); Globulin 2.1 g/dL (1.3-4.6); Glomerular Filtration Rate 85.6 mL/min (90-130); Glucose 100 mg/dL (65-115); Osmolality Calculated 290 mOsm/kg (285-295); Sodium 139 mmol/L (136-145); Thyroid Stimulating Hormone 3.85 uIU/mL (0.27-4.20); Total Bilirubin 0.9 mg/dL (0.15-1.2); Total Protein 6.9 g/dL (6.6-8.7)
[2023-05-27 14:39] LABS: Anion Gap 16.2 (5-19); Aspartate Amino Transferase 14 U/L (0-32); Potassium 4.2 mmol/L (3.5-5.1)
[2023-05-27 15:00] VITALS: BP 127/67; PULSE 67; O2SAT 95
[2023-05-27] MEDS: meclizine 25 mg tablet 50 MG PO (15:18)
[2023-05-27 16:00] VITALS: BP 135/85; PULSE 66; RESP 20; O2SAT 95
[2023-05-27 16:25] VITALS: BP 135/88; PULSE 66; RESP 16; O2SAT 95
== END 2023-05-27 16:27 | disposition home or self-care (01) ==
PROVIDERS: Emergency Provider Physician Assistant; PCP Nurse Practitioner Family
DX: R42 Dizziness and giddiness (principal); F17.210 Nicotine dependence, cigarettes, uncomplicated
CPT/HCPCS: 70450; 80053; 81001; 84443; 85025; 93005; 99285; J7030; J8597

== ENCOUNTER 2025-04-13 07:32 | Emergency (ER) | payer SELFPAY ==
[2025-04-13 07:41] VITALS: BP 147/93; PULSE 72; RESP 18; TEMP 36.6; O2SAT 97; BMI 26.6
--- NOTE | 2025-04-13 07:44 | ED_ITS ---
HPI - Extremity Problem 2 General: Chief complaint: Extremity Problem,Nontraumatic Stated complaint: back pain Time Seen by Provider: 04/13/25 07:37 History of Present Illness: 59-year-old female presents emergency ro om complaining of left hip and low back pain. Pain is very spasmodic in nature intermittently patient will scream out in pain while we are examining her while she is lying down. She has had a little bit of a sore hip lately no recent falls or trauma no previous back or hip surgery. Patient states she has had kidney stones in the past but states this feels very different than what she is experienced previously. No fever sweats or chills. No abdominal pain. No radicular pain. Associated symptoms: Deny chest pain, fever(s) or rash Related Data Home Medications ?Medication ?Instructions ?Recorded ?Confirmed fluoxetine 40 mg capsule 40 mg PO QAM 07/25/20 levothyroxine 125 mcg tablet 125 mcg PO QAM 07/25/20 0 04/13/25 Previous Rx's ?Medication ?Instructions ?Recorded diclofenac sodium 75 mg 75 mg PO Q12H PRN pain #20 t abs 04/13/25 tablet,delayed release prednisone 20 mg tablet 20 mg PO TID #15 tabs tizanidine 4 mg tablet 4 mg PO Q6H PRN muscle spast icity 04/13/25 #20 tabs Allergies Allergy/AdvReac Type Severity Reaction Status Date / Time No Known Allergies Allergy Verified 03/15/23 15:21 Review of Systems 2 Const: Denies: fever(s) or chills Card: Denies: chest pain Resp: Denies: dyspnea GI: Denies: abdominal pain : Reports: flank pain; Denies: dysuria, urinary frequency or urinary urgency Musc: Reports: back pain; Denies: neck pain or extremity pain Skin/Breast: Denies: rash PFSH ED 2 PFSH: Social History Smoking and tobacco/nicotine status: current every day tobacco/nicotine user Household members: spouse Marital status: Current occupational status: unemployed Physical Exam 2 Const: COMMON NORMALS: no acute distress GENERAL APPEARANCE: cooperative and comfortable ORIENTATION/CONSCIOUSNESS: Yes awake, Yes oriented to person, Yes oriented to place and Yes oriented to time HENMT: COMMON NORMALS: normocephalic, atraumatic and hearing grossly normal bilaterally HEAD & SCALP: normocephalic and atraumatic Resp: COMMON NORMALS: normal respiratory effort, No retractions, No use of accessory muscles and clear to auscultation bilaterally AUSCULTATION: clear to auscultation bilaterally Cardio: COMMON NORMALS: regular rate, regular rhythm and No murmurs present (Cardio) RATE: regular rate RHYTHM: regular rhythm GI: COMMON NORMALS: Soft to palpation and No hepatosplenomegaly present A USCULTATION: Yes normoactive bowel sounds PALPATION: Yes Soft to palpation, No Tenderness to palpation present (GI), No Guarding due to palpation present (GI) and Yes No hepatosplenomegaly present Extremity: COMMON NORMALS: normal to inspection, capillary refill normal, no clubbing, cyanosis or edema, no calf tenderness and no pedal edema OTHER: Straight leg raising negative deep tendon reflexes +2/4 patellar tendon bilaterally dorsi flexion 5 5 neurovascular extremities are intact Neuro: SENSORIUM/ORIENTATION: Yes oriented to person, Yes oriented to place and Yes oriented to time Skin: COMMON NORMALS: no rashes or lesions noted GENERAL SKIN EXAM: no rashes or lesions noted Course 2 Vital Signs: Vital signs: Vital Signs Temperature 97.8 F 04/13/25 07:41 Pulse Rate 65 04/13/25 09:00 Respiratory Rate 19 H 04/13/25 07:53 Blood Pressure 108/61 04/13/25 09:00 Pulse Oximetry 91 04/13/25 09:00 Oxygen Delivery Me thod Room Air 04/13/25 09:00 MDM - Extremity (Nontraumatic) Medical Decision Making CT lumbar spine negative radiology contacted and is concerned there was some dilation of left ureter that she may have a kidney stone. She does not have any microscopic hematuria at the recommendation of radiology CT renal stone protocol was done was negative for any ureterolithiasis. Microscopic on the urine was also negative. Will discharge patient home with diclofenac and steroid taper tizanidine. Discussed with the patient if this does not improve may need follow-up with primary care for more advanced imaging such as an MRI felt appropriate. Medical Records I reviewed the patient's medical records. Lab Data I reviewed the patient's lab results. 04/13/25 07:57 04/13/25 07:57 Radiology Impressions Hip/Pelvis X-Ray 04/13/25 07:46 IMPRESSION: 1. Normal LEFT hip. Lumbar Spine CT 04/13/25 08:08 IMPRESSION: 1. Moderate central canal stenosis L3-L4 and L4-L5 with central disc bulging and impingement on the traversing L4 and L5 nerve roots bilaterally. 2. Disc osteophyte complex L5-S1 slightly impinges the traversing LEFT greater than RIGHT S1 nerve roots. 3. Mild LEFT L3-4 and LEFT L4-5 foraminal narrowing. 4. Moderate bilateral L5-S1 foraminal narrowing LEFT greater than RIGHT. 5. Partially visualized numerous bilateral renal parenchymal calculi. Mild bilateral pelvicaliectasis and ureterectasis LEFT greater than RIGHT. Slight induration about the LEFT renal pelvis. This can be further evaluated with renal stone protocol if clinical symptoms 6. No acute compression fractures. Notified John Young DO at 04/13/2025 9:12 AM. Abdomen/Pelvis CT 04/13/25 09:08 IMPRESSION: 1. No obstructing renal or ureteral calculi. 2. Innumerable nonobstructing renal parenchymal calculi bilaterally. 3. Mild LEFT pelvocaliectasis and proximal ureterectasis with slight induration may be due to recently passed calculus. No obstructing LEFT ureteral calculi. 4. Small amount of free fluid in the pelvis. 5. Small esophageal hiatal hernia. 6. Fat-containing umbilical hernia with a tiny amount of entrapped fluid. No herniated bowel. 7. Fat-containing RIGHT inguinal hernia 8. Normal appendix Laboratory Results WBC 5.80 10^3/uL (3.29-11.43) 04/13/25 07:57 RBC 5.04 10^6/uL (3.85-5.65) 04/13/25 07:57 Hgb 16.40 g/dL (11.27-16.99) 04/13/25 07:57 Hct 49.5 % (36-47) H 04/13/25 07:57 MCV 98.2 fl (85-98) H 04/13/25 07:57 MCH 32.5 pg (27-33) 04/13/25 07:57 MCHC 33.1 g/dL (30-55) 04/13/25 07:57 RDW 14.7 % (12.1-15.1) 04/13/25 07:57 Plt Count 273 10^3/cmm (157-399) 04/13/25 07:57 MPV 9.9 fL (7.4-10.4) 04/13/25 07:57 Neut % (Auto) 65.5 % 04/13/25 07:57 Lymph % (Auto) 20.7 % 04/13/25 07:57 [place] % (Auto) 8.1 % 04/13/25 07:57 Eos % (Auto) 4.7 % 04/13/25 07:57 Baso % (Auto) 0.5 % 04/13/25 07:57 Neut # (Auto) 3.80 10^3/uL (1.8-7.7) 04/13/25 07:57 Lymph # (Auto) 1.2 10^3/uL (0.8-4.8) 04/13/25 07:57 [place] # (Auto) 0.5 10^3/uL (0.2-0.9) 04/13/25 07:57 Eos # (Auto) 0.3 10^3/uL (0.0-0.8) 04/13/25 07:57 Baso # (Auto) 0.0 10^3/uL (0.0-0.1) 04/13/25 07:57 Nucleated RBC % (auto) 0 % 04/13/25 07:57 Nucleated RBCs # 0.0 /100WBC 04/13/25 07:57 Sodium 142 mmol/L (136-145) 04/13/25 07:57 Potassium 4.2 mmol/L (3.5-5.1) 04/13/25 07:57 Chloride 103 mmol/L (98-107) 04/13/25 07:57 Carbon Dioxide 28 mmol/L (22-29) 04/13/25 07:57 Anion Gap 15.2 (5-19) 04/13/25 07:57 BUN 11 mg/dL (8-23) 04/13/25 07:57 Creatinine 0.8 mg/dL (0.5-0.9) 04/13/25 07:57 GFR Calculation 72.9 mL/min (90-130) L 04/13/25 07:57 Glucose 111 mg/dL (65-115) 04/13/25 07:57 Calculated Osmolality 294 mOsm/kg (285-295) 04/13/25 07:57 Calcium 9.3 mg/dL (8.5-10.5) 04/13/25 07:57 Total Bilirubin 1.1 mg/dL (0.15-1.2) 04/13/25 07:57 AST 18 U/L (0-32) 04/13/25 07:57 ALT 17 U/L (0-33) 04/13/25 07:57 Alkaline Phosphatase 82 U/L (35-105) 04/13/25 07:57 Total Protein 7.6 g/dL (6.6-8.7) 04/13/25 07:57 Albumin 4.7 g/dL (3.5-5.2) 04/13/25 07:57 Globulin 2.9 g/dL (1.3-4.6) 04/13/25 07:57 Urine Color Yellow (Yellow) 04/13/25 08:04 Urine Appearance Clear (CLEAR) 04/13/25 08:04 Urine pH 6.5 (5-7) 04/13/25 08:04 Ur Specific [place] 1.011 (1.005-1.030) 04/13/25 08:04 Urine Protein Negative (Negative) 04/13/25 08:04 Urine Glucose (UA) Negative (Normal) 04/13/25 08:04 Urine Ketones Negative (Negative) 04/13/25 08:04 Urine Blood Negative (Negative) 04/13/25 08:04 Urine Nitrate Negative (Negative) 04/13/25 08:04 Urine Bilirubin Negative (Negative) 04/13/25 08:04 Urine Urobilinogen 1.0 mg/dL (Negative) 04/13/25 08:04 Ur Leukocyte Esterase Negative (Negative) 04/13/25 08:04 Urine RBC 0-2 /hpf (0-2) 04/13/25 08:04 Urine WBC 0-5 /hpf (0-5) 04/13/25 08:04 Ur Squamous Epith Cells 0-5 /hpf (0-5) 04/13/25 08:04 Amorphous Sediment Not Reportable 04/13/25 08:04 Urine Bacteria None seen /hpf (NONE) 04/13/25 08:04 Hyaline Casts 1.21 /lpf 04/13/25 08:04 All radiology interpretation(s) finalized by discharge Discharge Plan Discharge Patient Disposition: Home Clinical Impression: Acute radicular low back pain Condition: Stable Prescriptions: New tizanidine 4 mg tablet 4 mg PO Q6H PRN (Reason: muscle spasticity) Qty: 20 0RF Rx Instructions: do not exceed 3 doses per 24 hrs prednisone 20 mg tablet 20 mg PO TID Qty: 15 0RF Rx Instructions: 1 p.o. 3 times daily x3 days, 1 p.o. twice daily x2 days, 1 p.o. daily x2 days diclofenac sodium 75 mg tablet,delayed release (DR/EC) 75 mg PO Q12H PRN (Reason: pain) Qty: 20 0RF No Action levothyroxine 125 mcg tablet 125 mcg PO QAM fluoxetine 40 mg capsule 40 mg PO QAM Discharge Orders: Discharge ED (Routine); Ordered 04/13/25 Ordered By: John Young Referrals: Beckie Kerr FNP [Primary Care Provider, Unknown] Discharge Diet: Usual diet Discharge Activity: Resume usual activity Patient Instructions: Opioid Safety, Pain Management, Patient Portal & Alesia Instructions Activity Restrictions/Additional Instructions: Thank you for choosing [facility] for your healthcare needs today. It is very important that you follow up as instructed or that you return to the Emergency Department should you have concerns or if your condition changes or worsens in any way. You were seen in the emergency room with complaints of low back pain that was radiating into your hip. It was very spasmodic in nature. CT your lumbar spine was negative. Radiology had concerns that there is some dilation of the ureter CT for nephrolithiasis did not show any acute ureterolithiasis there was some dilation of the ureter this is likely chronic there was no blood in the urine or signs of infection. Will discharge you home with diclofenac to use as needed. Start prednisone taper today. You are also given as needed tizanidine. If your symptoms worsen or do not improve follow-up with your primary care doctor Stand Alone Forms: Work/School Release Print Language: Mongolian Coding Level of Care Code ED Cashier Tube Room for Alie Linder
--- NOTE | 2025-04-13 07:46 | XR_ITS ---
WS: [id number] Exam: XR hip LT 2-3V wo/w pel* [id number] Date/Time of Exam: 04/13/2025 7:50 AM Reason For Exam: Pain No acute fracture. The joint compartment is well-maintained. Normal soft tissues. XR/XR hip LT 2-3V wo/w pel* [id number] IMPRESSION: 1. Normal LEFT hip.
[2025-04-13 07:53] VITALS: RESP 19; O2SAT 98
[2025-04-13] MEDS: morphine 4 mg/mL SDV 1 mL IVP (07:53)
[2025-04-13] MEDS: ondansetron 2 mg/ML SDV 2 mL 4 MG IVP (07:54)
[2025-04-13] MEDS: methylPREDNISolone sod succ 125 mg/2 mL INJ IVP (08:00)
[2025-04-13 08:03] LABS: Hematocrit 49.5 % (36-47); Hemoglobin 16.40 g/dL (11.27-16.99); Mean Corpuscular HGB Conc 33.1 g/dL (30-55); Mean Corpuscular Hemoglobin 32.5 pg (27-33); Mean Corpuscular Volume 98.2 fl (85-98); Nucleated Red Blood Cells % 0 %; Platelet Count 273 10^3/cmm (157-399); Red Blood Count 5.04 10^6/uL (3.85-5.65); White Blood Count 5.80 10^3/uL (3.29-11.43)
--- NOTE | 2025-04-13 08:08 | CT_ITS ---
WS: [id number] CT LUMBAR SPINE TECHNIQUE: Noncontrast CT of the lumbar spine with coronal and sagittal reformatted images. CLINICAL INFORMATION: Back pain COMPARISON: None. DLP: 1063.[address] scans at [facility] use at least one of these dose optimization techniques: automated exposure control; mA and/or kV adjustment per patient size (includes targeted exams where dose is matched to clinical indication); or iterative reconstruction. FINDINGS: Mild lumbar curve convex LEFT. Slight anterolisthesis L4 on L5. Disc bulging worse L3-L4 L4-L5 and L5-S1. Numerous partially visualized renal parenchymal calculi. Mild LEFT pelvicaliectasis and proximal ureterectasis. Partially visualized small LEFT renal cyst. L1-L2: Mild annular bulging. Spinal canal and foramen are patent. L2-L3: Mild annular bulging. Narrowing of the subarticular recess bilaterally. Mild facet arthropathy. Mild LEFT foraminal narrowing. Mild facet arthropathy. L3-L4: Mild disc bulging with moderate central canal stenosis. Impingement on the LEFT greater than RIGHT subarticular recess and traversing L4 nerve roots. Mild LEFT foraminal narrowing. Moderate facet arthropathy with ligamentum flavum hypertrophy. L4-L5: Mild annular bulging with moderate central canal stenosis. Broad-based central protrusion impinges the traversing L5 nerve roots bilaterally. Mild LEFT foraminal narrowing. Moderate facet arthropathy with ligamentum flavum hypertrophy. L5-S1: Disc osteophyte complex with endplate ridging. Slight contact of the traversing S1 nerve roots LEFT greater than RIGHT. Moderate facet arthropathy. Moderate bilateral foraminal narrowing. CT/CT lumbar spine wo con* [id number] IMPRESSION: 1. Moderate central canal stenosis L3-L4 and L4-L5 with central disc bulging a nd impingement on the traversing L4 and L5 nerve roots bilaterally. 2. Disc osteophyte complex L5-S1 slightly impinges the traversing LEFT greater than RIGHT S1 nerve roots. 3. Mild LEFT L3-4 and LEFT L4-5 foraminal narrowing. 4. Moderate bilateral L5-S1 foraminal narrowing LEFT greater than RIGHT. 5. Partially visualized numerous bilateral renal parenchymal calculi. Mild [place] ateral pelvicaliectasis and ureterectasis LEFT greater than RIGHT. Slight indur ation about the LEFT renal pelvis. This can be further evaluated with renal sto ne protocol if clinical symptoms 6. No acute compression fractures. Notified John Young DO at 04/13/2025 9:12 AM.
[2025-04-13 08:16] LABS: Glucose Urine UA Negative (Normal); Nitrate Urine Negative (Negative); Specific Gravity, Urine 1.011 (1.005-1.030)
[2025-04-13 08:18] LABS: Add Urine Microscopic? YES
[2025-04-13 08:22] LABS: Albumin Level 4.7 g/dL (3.5-5.2); Alkaline Phosphatase 82 U/L (35-105); Anion Gap 15.2 (5-19); Aspartate Amino Transferase 18 U/L (0-32); Blood Urea Nitrogen 11 mg/dL (8-23); Calcium 9.3 mg/dL (8.5-10.5); Carbon Dioxide 28 mmol/L (22-29); Chloride 103 mmol/L (98-107); Creatinine Clr Calc Pharmacy 73.7134; Globulin 2.9 g/dL (1.3-4.6); Glucose 111 mg/dL (65-115); Osmolality Calculated 294 mOsm/kg (285-295); Potassium 4.2 mmol/L (3.5-5.1); Sodium 142 mmol/L (136-145); Total Protein 7.6 g/dL (6.6-8.7)
[2025-04-13 08:32] LABS: Alanine Aminotransferase 17 U/L (0-33)
--- NOTE | 2025-04-13 08:59 | PC.PHAR ---
Patient states this morning 04/13/25 around 5:30am she took one of her husbands generic percocet . Last night 04/12/25 she took one of her husbands muscle relaxers .
[2025-04-13 09:00] VITALS: BP 108/61; PULSE 65; O2SAT 91
--- NOTE | 2025-04-13 09:08 | CT_ITS ---
WS: [id number] CT ABDOMEN PELVIS TECHNIQUE: Noncontrast CT of the abdomen and pelvis with coronal and sagittal reformatted images. CLINICAL INFORMATION: flank pain/history of renal stones COMPARISON: CT 2022 DLP: [id number] scans at [facility] use at least one of these dose optimization techniques: automated exposure control; mA and/or kV adjustment per patient size (includes targeted exams where dose is matched to clinical indication); or iterative reconstruction. FINDINGS: Mild LEFT renal pelvocaliectasis and proximal ureterectasis. Slight induration about the LEFT proximal ureter although no visualized obstructing LEFT ureteral calculi. LEFT ureter is decompressed. Pelvic phleboliths. Slight RIGHT renal pelvocaliectasis. No obstructing RIGHT renal or ureteral calculi. Innumerable bilateral renal parenchymal calculi. Bilateral renal cysts. Normal noncontrast liver and spleen. Normal gallbladder. Small esophageal hiatal hernia. Lung bases are well aerated. Thickening of the LEFT adrenal gland unchanged. RIGHT adrenal gland is normal. Normal caliber abdominal aorta. Vascular calcification. Fat-containing RIGHT inguinal hernia. Fat-containing umbilical hernia with a small amount of trapped fluid. No herniated bowel. Small amount of free fluid in the cul-de-sac. Normal appendix in the RIGHT lower quadrant. CT/CT kidney stone [id number] IMPRESSION: 1. No obstructing renal or ureteral calculi. 2. Innumerable nonobstructing renal parenchymal calculi bilaterally. 3. Mild LEFT pelvocaliectasis and proximal ureterectasis with slight induratio n may be due to recently passed calculus. No obstructing LEFT ureteral calculi. 4. Small amount of free fluid in the pelvis. 5. Small esophageal hiatal hernia. 6. Fat-containing umbilical hernia with a tiny amount of entrapped fluid. No h erniated bowel. 7. Fat-containing RIGHT inguinal hernia 8. Normal appendix
[2025-04-13 10:40] VITALS: BP 114/79; PULSE 72; O2SAT 94
== END 2025-04-13 10:40 | disposition home or self-care (01) ==
PROVIDERS: Emergency Provider Family Medicine; PCP Nurse Practitioner Family
DX: M54.50 Low back pain, unspecified (principal)
CPT/HCPCS: 36415; 72131; 73502; 74176; 80053; 81001; 85025; 96361; 96374; 96375; 99285; J1885; J2270; J2405; J2919; J7030